=== PATIENT | female | born 1965 | race Caucasian/White ===

== ENCOUNTER → 2016-09-30 | Outpatient (REF) | payer OTHER, SELFPAY | LOC: M LAB REF 16:27 | PROVIDERS: ATTEND Obstetrics & Gynecology | DX: N39.0 Urinary tract infection, site not specified (principal) ==

== ENCOUNTER → 2020-12-07 | Outpatient (CLI) | payer BC ==
--- NOTE | 2020-12-07 13:32 | RADONC.CN ---
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 She underwent initial resection on 10/23/20 with inadequate margins followed by Moh's resection on 11/06/20. Pathology revealed PNI and deep invasion into the subcutis. She is seen today for consideration of adjuvant RT. Diagnosis/Treatment History Oncologic History As above Pathology: 10/23/20 2.8 cm SCC PNI+ Deeply invasive into subcutis Interval History Kaitlynn is here with her supportive . She reports that the lesion on the central chest arose rapidly over the course of weeks in September. The spot was r aised, non-painful and not ulcerated. Since surgery she has noted her incision remains persistently red and raised and has surrounding flaking and itching skin. She reports she has an atopic phenotype with frequent eczema. She has been in contact with her assistant director of plant operations who plans to taper the humira to 50% dose. She currently does not complain of joint pain or other rheumatic symptoms. She reports that she has always been "slow healing" when it comes to minor skin wounds. She has no fevers/chills or night sweats. She notes no lymphadenopathy. Has a pending CT scan for [facility] ordered by her funeral greeter to rule out farooq metastases. Past Medical History: RA (Humira for past 6 years) Crohn's Basal cell carcinoma Past Surgical History: BL silicone breast implants 1994 Cholecystectomy Small bowel resection x 2 Family History: No family history of cancer Social History: Never smoker Drinks occasionally Review of Systems Constitutional: Denies: Chills, Fever, Fatigue Eyes: Denies: Pain, Conjunctivae inflammation HEENT: Denies: Head Aches Skin: Reports: Rash Pulmonary: Denies: Dyspnea Cardiovascular: Denies: Chest Pain Gastrointestinal: Denies: Abdominal Pain, Hematochezia Hematologic: Denies: Bruising, Bleeding Excessively Musculoskeletal: Denies: Neck pain, Back pain Neurological: Denies: Weakness, Numbness Psych: Reports: Mood Normal Vital Signs Wt 132 lbs T 97.4 P 68 RR 18 BP 111/64 O2 99% Pain 0 Fatigue 0 General Exam: Alert, Cooperative, No Acute Distress Eye Exam: PERRLA EOMI ENT EXAM: Atraumatic Neck Exam: Supple; Negative: Lymphadenopathy Chest Exam: Clear to auscultation Heart Exam: Rate Normal Breast Exam: Symmetric Bilaterally, Skin Changes (In the central chest overlying the breast bone there is a longitudinal scar approximately 7.5 cm in length. It is red and raised without tenderness or drainage. There is surrounding eczematoid reaction.) Abdomen Exam: Soft Extremity Exam: Negative: Edema Skin Exam: Nl turgor and temperature Neuro Exam: Normal Gait, Normal Speech, Cranial Nerves 3-12 NL Psych Exam: Mental status NL Diagnostic and Laboratory Diagnostic Review Radiologic images, relevant labs and pathology reports were personally reviewed and discussed with Ms. Segundo. Assessment and Plan Impression Ms. 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 She underwent initial resection on 10/23/20 with inadequate margins followed by Moh's resection on 11/06/20. Pathology revealed PNI and deep invasion into the subcutis. She is seen today for consideration of adjuvant RT. Stage SCC skin of central chest [id number] stage II Performance Status ECOG 0 Plan We had an extensive discussion with Ms. Segundo regarding the diagnosis at hand and available therapeutic options. She has healed well from the excision, however she seems to have an eczematoid reaction at her incision site. She is prone to eczema per her own admission. I encouraged her to continue to apply emollients to the site as well as steroid cream BID (she has triamcinolone on hand). I see no evidence of regrowth of the lesion. I discussed the pathology and natural history of the lesion suggest an aggressive phenotype which warrant adjuvant RT--the lesion arose rapidly was deeply invasive and exhibited PNI. I explained that there is some reported association between SCC of the skin with biologic therapies for autoimmune dis orders. I recommend 55 Gy in 20 fractions with 6 MeV electrons and custom aperture with 0.5 cm bolus. I will strive for 3 cm margins around the scar. The location of the field is generally favorable being between the breasts and longitudinally oriented. This should spare dose to breast tissue at risk as well as underlying heart and lung. We discussed the logistics of receiving radiation therapy in detail including the need for a 1-time planning session. This can occur next week as they plan to travel to [place] in early January. We reviewed the side effects of RT including fatigue, skin reaction, skin pigmentation changes, and second malignancy. I discussed that although there are some reports of extreme cutaneous reactions to RT in patients with RA or like disorders that in aggregate there is no decisive link. Given her RA itself is quiescent at this time I think bodes well that she will tolerate treatment well. After discussing the risks, benefits and alternatives to radiation therapy, Ms. Segundo was amenable to pursuing radiotherapy. All questions were answered to the patient's satisfaction. We instructed the patient that if there were any questions,concerns or changes in clinical status in the interim to contact us. Recommendations Adjuvant RT 55 Gy in 20 fractions with electrons Simulation in the next week Triamcinolone to scar BID Billing Statement Total time of [50] minutes was spent preparing for the visit [2], obtaining HPI [8], examining the patient [4], reviewing diagnostic tests [2], discussing management options [25], coordinating care [2], and writing this note [7]. ANNETTE RAMOS MD Dec 07, 2020 13:32
--- NOTE | 2020-12-12 09:37 | RADENCPD ---
Date/Time of Encounter Date of Encounter: Dec 12, 2020 Time of Encounter: 09:30 Encounter Reviewed the images from her CT scans of chest and neck. I appreciate a 0.2 cm peripheral lung nodule which is too small for any further characterization. I do not think this warrants any special attention at this time. With respect to the neck imaging, she has normal variant anatomy including mild asymmetrical prominent BOT tissue, her supraglottic and glottic anatomy are entirely normal variant without any mass-like lesions and in the absence of any symptoms or enlarged LN in the neck I do not think this warrants further scrutiny at this time. Called these results to her. Will proceed with simulation for adjuvant RT. Will order a non-contrast CT chest in 1 year to follow the small nodule. ANNETTE RAMOS MD Dec 12, 2020 09:36
== END ==
LOC: M ONCR 11:03
PROVIDERS: ATTEND General Practice
DX: C44.529 Squamous cell carcinoma of skin of other part of trunk (principal); K50.90 Crohn's disease, unspecified, without complications; M06.9 Rheumatoid arthritis, unspecified; Z85.828 Personal history of other malignant neoplasm of skin

== ENCOUNTER 2020-12-17 10:30 | Outpatient (RCR) | payer BC ==
[2021-01-18] MEDS ORDERED: SILV40CR EXT (14:28)
[2021-03-13] MEDS ORDERED: [UNRECOGNIZED DRUG - CODE] EX (09:51)
[2021-03-13] MEDS ORDERED: [UNRECOGNIZED DRUG - SUPPLY] EX (09:56)
[2021-03-22] MEDS ORDERED: PENT400T47 PO (09:51)
[2021-03-22] MEDS ORDERED: VITA-175 PO (09:51)
[2021-03-22] MEDS ORDERED: LIDO1CRE42 TOP (09:52)
== END 2020-12-18 ==
LOC: M ONCR 10:30
PROVIDERS: ATTEND General Practice
DX: C44.529 Squamous cell carcinoma of skin of other part of trunk (principal)

== ENCOUNTER → 2021-01-17 | Outpatient (RCR) | payer BC ==
[~2021-01-17] MED LIST: SILV40CR EXT
== END ==
LOC: M ONCR 12-19 11:00
PROVIDERS: ATTEND General Practice
DX: C44.529 Squamous cell carcinoma of skin of other part of trunk (principal)

== ENCOUNTER 2021-01-21 14:01 | Outpatient (RCR) | payer BC ==
[2021-02-08] MEDS ORDERED: [UNRECOGNIZED DRUG - SUPPLY] EX (11:00)
== END 2021-02-17 ==
LOC: M ONCR 14:01
PROVIDERS: ATTEND General Practice
DX: C44.529 Squamous cell carcinoma of skin of other part of trunk (principal); L29.8 Other pruritus

== ENCOUNTER → 2021-01-23 | Outpatient (REF) | payer BC | LOC: M LAB REF 12:29 | PROVIDERS: ATTEND Internal Medicine | DX: D51.9 Vitamin B12 deficiency anemia, unspecified (principal) ==

== ENCOUNTER → 2021-01-29 | Outpatient (CLI) | payer BC ==
--- NOTE | 2021-01-29 16:10 | RADENCPD ---
Date/Time of Encounter Date of Encounter: Jan 29, 2021 Time of Encounter: 16:08 Encounter Kaitlynn came in for a skin check today. On exam her central chest treatment site has CTCAE grade 2 confluent moist desquamation. Minimal re-epithelialization. She has been using the polymem foam with some positive effect. I advise we should continue these dressings until full re-epithelialization, will attempt to source more. Will call tomorrow hopefully having located some for her. For follow up [place] so will arrange tele alth when I call tomorrow. She should be followed closely until the radiodermatitis heals. ANNETTE RAMOS MD Jan 29, 2021 16:10
== END ==
LOC: M ONCR 15:40
PROVIDERS: ATTEND General Practice
DX: C44.529 Squamous cell carcinoma of skin of other part of trunk (principal); L58.9 Radiodermatitis, unspecified

== ENCOUNTER → 2021-02-08 | Outpatient (CLI) | payer BC ==
[~2021-02-08] MED LIST changes: +[UNRECOGNIZED DRUG - SUPPLY] EX
--- NOTE | 2021-02-08 10:30 | RADENCPD ---
Date/Time of Encounter Date of Encounter: Feb 08, 2021 Time of Encounter: 10:28 Encounter Spoke to Kaitlynn this AM via Zoom. She has active re-epithialization of the central chest treatment site. The polymem has been helpful. She would like an Rx sent to her [place] pharmacy. I will send this and see her again via telehealth on 02/19/21 @ 900. This is a no charge global follow up encounter. ANNETTE RAMOS MD Feb 08, 2021 10:30
== END ==
LOC: M ONCR 10:19
PROVIDERS: ATTEND General Practice
DX: C44.529 Squamous cell carcinoma of skin of other part of trunk (principal); Z92.3 Personal history of irradiation

== ENCOUNTER → 2021-02-19 | Outpatient (CLI) | payer BC ==
--- NOTE | 2021-02-19 09:21 | RADENCPD ---
Date/Time of Encounter Date of Encounter: Feb 19, 2021 Time of Encounter: 09:19 Encounter Kaitlynn was seen via telehealth for a skin check. The central chest treatment site has white granulation throughout, the area surrounding is covered with pink nascent skin. She is healing well, continuing polymem to the moist areas daily. She is pleased with her progress. I will call her again in 1 month by that time she will likely be fully healed. THIS IS A NO CHARGE GLOBAL PERIOD FOLLOW UP ANNETTE RAMOS MD Feb 19, 2021 09:21
== END ==
LOC: M ONCR 09:29
PROVIDERS: ATTEND General Practice
DX: C44.529 Squamous cell carcinoma of skin of other part of trunk (principal); Z92.3 Personal history of irradiation

== ENCOUNTER → 2021-05-01 | Outpatient (CLI) | payer BC ==
[~2021-05-01] MED LIST changes: +LIDO1CRE42 TOP; +PENT400T47 PO; +VITA-175 PO; +[UNRECOGNIZED DRUG - CODE] EX
== END ==
LOC: M ONCR 09:15
PROVIDERS: ATTEND General Practice
DX: C44.529 Squamous cell carcinoma of skin of other part of trunk (principal)

== ENCOUNTER → 2021-09-04 | Outpatient (CLI) | payer BC | LOC: M ONCR 13:24 | PROVIDERS: ATTEND General Practice | DX: C44.529 Squamous cell carcinoma of skin of other part of trunk (principal) ==

== ENCOUNTER → 2021-10-01 | Outpatient (CLI) | payer BC | LOC: M ONCR 14:54 | PROVIDERS: ATTEND General Practice | DX: Z08 Encounter for follow-up examination after completed treatment for malignant neoplasm (principal); R20.2 Paresthesia of skin; M06.9 Rheumatoid arthritis, unspecified; Z85.828 Personal history of other malignant neoplasm of skin; Z79.899 Other long term (current) drug therapy; Z92.3 Personal history of irradiation ==

== ENCOUNTER → 2022-01-01 | Outpatient (CLI) | payer BC | LOC: M CARPUL 07:25 | PROVIDERS: ATTEND Internal Medicine | DX: R00.0 Tachycardia, unspecified (principal) ==

== ENCOUNTER → 2022-01-24 | Outpatient (REF) | payer BC | LOC: M LAB REF 16:02 | PROVIDERS: ATTEND Internal Medicine | DX: M13.80 Other specified arthritis, unspecified site (principal) ==

== ENCOUNTER → 2022-10-31 | Outpatient (CLI) | payer BC ==
[~2022-10-31] MED LIST changes: -LIDO1CRE42 TOP; +LIDO30CR18 TOP
== END ==
LOC: M ONCR 10:18
PROVIDERS: ATTEND General Practice
DX: C44.529 Squamous cell carcinoma of skin of other part of trunk (principal); L58.9 Radiodermatitis, unspecified; M06.9 Rheumatoid arthritis, unspecified; Z71.2 Person consulting for explanation of examination or test findings; Z79.631 Long term (current) use of antimetabolite agent; Z79.899 Other long term (current) drug therapy; Z92.3 Personal history of irradiation; Z98.890 Other specified postprocedural states

== ENCOUNTER → 2023-11-02 | Outpatient (REF) | payer BC | LOC: M LAB REF 16:54 | PROVIDERS: ATTEND Internal Medicine | DX: M06.9 Rheumatoid arthritis, unspecified (principal) ==

== ENCOUNTER → 2024-01-05 | Outpatient (CLI) | payer BC | LOC: M WHC 12:39 | PROVIDERS: ATTEND Internal Medicine | DX: Z12.39 Encounter for other screening for malignant neoplasm of breast (principal) ==